=== PATIENT | female | born 1990 | race Asian ===

== ENCOUNTER 2019-01-06 19:37 | Emergency (ER) | payer MEDICAID, OTHER ==
[~2019-01-06] VITALS: Ht 172.7 cm; Wt 98.9 kg
[2019-01-06 20:16] VITALS: BP_SYST 150
--- NOTE | 2019-01-06 20:17 | NUR ---
Patient to ER bed 04 to gown for evaluation. Side rails up. Report given to CASIMIRO IBARRA
--- NOTE | 2019-01-06 20:37 | NUR ---
ER Dr. Rueda at bedside examining patient.
--- NOTE | 2019-01-06 20:40 | NUR ---
Pt BIB [employer] to ED seeking medical clearance. Pt stated She wanted to hurt herself around 5:30 pm. Pt states she has Hx of Bipolar and HTN. No other injuries and or complaints at this time. VSS no s/s of acute distress. Resting on Chair comfortable. Pt remain in deputy general counsel custody.
[2019-01-06 21:00] VITALS: BP_SYST 150
[2019-01-06] MEDS ORDERED: ACETAMINOPHEN 325 MG TABLET PO ONE (21:00)
--- NOTE | 2019-01-06 21:00 | NUR ---
Patient given written and verbal discharge instructions and verbalizes understanding. ER MD discussed with patient the results and treatment provided. Patient in stable condition. ID arm band removed. Patient educated on pain management and to follow up with PMD. Pain Scale 0/10 Opportunity for questions provided and answered.
== END 2019-01-06 21:00 ==
LOC: SED 19:37
DX: F41.9 Anxiety disorder, unspecified (principal)
CPT/HCPCS: 99283